=== PATIENT | female | born 1950 | race Asian ===

== ENCOUNTER 2016-09-16 14:29 | Emergency (ER) | payer OTHER ==
[~2016-09-16] VITALS: Ht 149.9 cm; Wt 53.6 kg
[2016-09-16 14:34] VITALS: BP 171/99; PULSE 80; RESP 15; O2SAT 98
--- NOTE | 2016-09-16 15:08 | ED.REPORT ---
HPI-General Illness Date of Service Sep 16, 2016 ED Provider: Teressa Miller MD Patient is a 65-year-old female who presents to the ED reporting vomiting, with three episodes in the last 24 hours. The patient had a mild cough 7 days ago and was seen at [facility] where they gave her azithromycin. Via the patient's daughter, she began vomiting early this morning and would have an episode of incontinence every time she coughed. Patient c/o associated dizziness , constipation, chills, headache, nausea, and abdominal pain that radiates to her back. She says it feels like, "the room is spinning" and describes the headache as moderate pain that began yesterday and increased in severity today. She has never had any surgery on her belly. Denies trouble breathing and diarrhea. She has been constipated and last had a bowel movement five days ago. She has never had any surgery on her belly. Patient has had one stroke in the past and has mild weakness from the event. Nursing Notes Stated Complaint: VOMITING/HIGH BP Chief Complaint: Female Abdominal Pain Nursing Notes Reviewed: Yes Allergies: Coded Allergies: No Known Allergies (Unverified , 09/16/16) Scheduled PRN Ondansetron ODT (Ondansetron ODT) 8 Mg Tab.rapdis 8 MG PO Q6H PRN PRN For Nausea General Time Seen by MD: 15:05 Chief Complaint Vomiting Hx Obtained From: Patient, Daughter Arrived By: Walk-in Sudden in Onset?: Yes Onset Occurred: 13 - 16 hours ago Symptom Duration: Since onset Location: : Abdomen Radiation: : Back Severity: Current: Mild Recent Healthcare: Recent doctor visit ([facility]) Similar Sx Previous: Yes Past Medical History Past Medical History Reports: Stroke Past Surgical History denies Social History Other Social History: Good social support, Local resident Ambulatory Status Independent Review of Systems Full Review of Systems Constitutional: Reports: Chills Respiratory: Reports: Non-productive cough GI: Reports: Abdominal pain, Constipation, Nausea, Vomiting, Denies: Diarrhea Female: Reports: Incontinence Neurologic: Reports: Dizziness, Headache, Lightheaded Complete sys rev & neg: except as marked. Physical Exam Vital Signs Vital Signs Date Time Temp Pulse Resp B/P Pulse Ox O2 Delivery O2 Flow Rate FiO2 09/16/16 20:11 37.0 81 23 118/87 95 09/16/16 18:27 80 18 120/81 09/16/16 15:55 77 18 139/83 98 Room Air 09/16/16 14:34 36.3 80 15 171/99 98 Room Air Initial VS: Reviewed, Vital signs abnormal Head / Eyes: Atraumatic, Normocephalic, PERRL ENT: Mucous membranes moist, Conjunctiva normal, No scleral icterus Neck: Supple, Non-tender, Full range of motion Respiratory: Breath sounds normal, Clear to auscultation, No respiratory distress Cardiovascular: Regular rate & rhythm, Heart sounds normal, Intact distal pulses Back: No CVA tenderness Skin: Warm, Dry, No cyanosis General/Constitutional: Awake, Alert, Cooperative, Not toxic appearing Abdomen: Atraumatic, No guarding, No rebound general tenderness Lower Extremity / Pelvis / MS: No edema Neurologic: CN II - XII intact Right arm strength 0/5 Right leg strength 4/5 sensation intact throughout Interpretation & Diagnostics Lab Results Interpretation Result Diagram: 09/16/16 1635 09/16/16 1635 Test 09/16/16 16:35 09/16/16 19:04 White Blood Count 10.5th/mm3 (3.8-10.1) Red Blood Count 6.91mil/mm3 (3.90-5.20) Hemoglobin 14.4g/dL (12.0-15.6) Hematocrit 46.1% (35.0-46.0) Mean Corpuscular Volume 66.7fL (81-100) Mean Corpuscular Hemoglobin 20.8pg (27.0-35.0) Mean Corpuscular Hemoglobin Concent 31.2% (32.0-37.0) Red Cell Distribution Width 16.3% (12.3-15.4) Platelet Count 448bil/L (150-400) Neutrophils (%) (Auto) 76.3% (40-74) Lymphocytes (%) (Auto) 19.4% (14-46) Monocytes (%) (Auto) 3.1% (4-12) Eosinophils (%) (Auto) 0.4% (0-5) Basophils (%) (Auto) 0.6% (0-3) Sodium Level 140mEq/L (134-144) Potassium Level 3.9mEq/L (3.5-5.2) Chloride Level 100mEq/L (97-108) Carbon Dioxide Level 24mmol/L (18-29) Blood Urea Nitrogen 12mg/dL (8-27) Creatinine 0.56mg/dL (0.57-1.00) Estimat Glomerular Filtration Rate 157mL/min (>59) Glucose Level 124mg/dL (60-99) Calcium Level 9.9mg/dL (8.5-10.1) Magnesium Level 2.6mg/dL (1.6-2.6) Total Bilirubin 0.6mg/dL (0.0-1.2) Aspartate Amino Transf (AST/SGOT) 48U/L (0-50) Alanine Aminotransferase (ALT/SGPT) 78U/L (0-32) Alkaline Phosphatase 111U/L (25-165) Total Protein 9.0g/dL (6.4-8.4) Albumin 4.7g/dL (3.4-5.0) Lipase 58U/L (13-60) Urine Color Yellow (YELLOW) Urine Appearance Clear (CLEAR,HAZY) Urine pH 7.0 (5.0-8.0) Urine Specific [place] 1.020 (1.003-1.035) Urine Protein Tracemg/dL (NEG,TRACE) Urine Glucose (UA) Negativemg/dL (NEGATIVE) Urine Ketones 40mg/dL (NEGATIVE) Urine Occult Blood Negative (NEGATIVE) Urine Nitrite Negative (NEGATIVE) Urine Bilirubin Negative (NEGATIVE) Urine Urobilinogen Normalmg/dL (NORMAL) Urine Leukocyte Esterase Small (NEGATIVE) Urine RBC 0-2/hpf (0-2) Urine WBC 0-5/hpf (0-5) Urine Epithelial Cells None/hpf (NONE-MOD) Urine Crystals None seen (NONE SEEN) Urine Bacteria Few/hpf (NONE-FEW) Urine Hyaline Casts None/lpf (NONE) Urine Granular Casts None seen (NONE SEEN) Urine Waxy Casts None seen (NONE SEEN) Urine Red Blood Cell Casts None seen (NONE SEEN) Urine White Blood Cell Casts None seen (NONE SEEN) Urine Mucus None seen (None Seen) Urine Trichomonas None seen (NONE SEEN) Urine Yeast None (NONE SEEN) Urinalysis Comment None Urine Culture Reflexed Indicated ECG Interpretation Time: 15:48 Interpreted by: ED physician Normal ECG Interpretation: Normal ECG w/ rate of... (76), Normal rate, Normal sinus rhythm, No acute ischemic changes X-Ray Abdominal Interpretation IMPRESSION: No evidence for bowel obstruction. Dictated by: Phil Mendoza M.D. on 09/16/2016 at 17:13 Approved by: Phil Mendoza M.D. on 09/16/2016 at 17:14 Study: 2 view Interpretation / Wet Read by: Interpret - Radiologist Re-Eval/Medical Decision Med Decision/Clinical Course The patient presents predominantly with nausea vomiting and dizziness. She was sent here from urgent care due to her high blood pressure. Differential diagnoses considered were intracranial hemorrhage, peripheral vertigo, dysrhythmia, dehydration, viral syndrome, hypertensive emergency, gastroenteritis, obstruction, and dehydration. The patient here did not reveal an obvious source of symptoms. Patient had generalized pain on her abdominal exam. After symptomatic treatment with fluids and anti-emetics the patient was feeling much improved. The patient's blood pressure came down on its own. There is likely a component of discomfort and anxiety. Time of Eval: 19:29 Patient Status: Condition unchanged Re-Evaluation/Progress Note: Pt rechecked. Informed pt of diagnosis of vomiting and dehydration and plan for treatment. Pt understands and agrees with plan. F/U and RTER warnings given. All questions addressed. Counseled Regarding: Diagnosis, Lab results, Need for follow-up, When/why to return to ED Discharge & Departure Primary Impression: Vomiting Vomiting type: unspecified Vomiting Intractability: unspecified Nausea presence: unspecified Qualified Code: R11.10 - Vomiting, unspecified Additional Impression: Dehydration Disposition: Home Discharge Condition All VS Reviewed: Yes Condition: Stable Additional Instructions: Thank you for coming to the Emergency Department today! Your diagnosis is vomiting and dehydration. Your symptoms are likely related to an infectious cause. Get plenty of rest and drink a lot of fluids. Seek care if you are unable to keep fluids down. Your prescription has been sent to [place]. Return to the Emergency Department for any new or worsening symptoms. We hope you feel better soon! Referrals: Tammy Lagunas MD (PCP) Scribe Attestation Portion of this note were transcribed by Karolyn Hoover. I, Dr. Miller, personally performed the history, physical exam, and medical decision-making: I reviewed and confirmed the accuracy for the information in the transcribed note. Signed by: rome Pool, 09/16/161999 copies to: Tammy Lagunas MD, Jena M MD Sep 16, 2016 15:08 KAROLYN HOOVER Sep 16, 2016 15:32
[2016-09-16] MEDS ORDERED: Ondansetron 2 mg/mL 2 mL Inj IVPUSH PRN (15:25)
[2016-09-16] MEDS ORDERED: 0.9% Sodium Chloride 1,000 ML IV ONE ×2 (15:25→18:30)
[2016-09-16 15:55] VITALS: BP 139/83; PULSE 77; RESP 18; O2SAT 98
[2016-09-16 16:57] LABS: Mean Corpuscular Hemoglobin 20.8 pg (27.0-35.0); Platelet Count 448 bil/L (150-400)
[2016-09-16 16:59] LABS: BASOPHILS % (AUTO) 0.6 % (0-3); EOSINOPHILS % (AUTO) 0.4 % (0-5); MONOCYTES % (AUTO) 3.1 % (4-12); Mean Corpuscular Volume 66.7 fL (81-100); NEUTROPHILS % (AUTO) 76.3 % (40-74)
[2016-09-16 17:14] LABS: Magnesium 2.6 mg/dL (1.6-2.6)
--- NOTE | 2016-09-16 17:20 | DRSVH ---
PROCEDURE: X-RAY ACUTE ABDOMINAL SERIES ([id number]) INDICATIONS: 65 year-old female with vomiting and constipation. TECHNIQUE: One view chest and two views of the abdomen were acquired. COMPARISON: None. FINDINGS: Surgical changes and devices: None. Chest: Lungs are clear. Heart size is normal. No pleural effusions. No pneumoperitoneum. Abdomen: Bowel gas pattern is normal, with scattered stool throughout the colon. No suspicious calc ifications. Visualized solid organ contours appear normal. Bones: No suspicious bony lesions. IMPRESSION: No evidence for bowel obstruction. Dictated by: Phil Mendoza M.D. on 09/16/2016 at 17:13 Approved by: Phil Mendoza M.D. on 09/16/2016 at 17:14
[2016-09-16 18:27] VITALS: BP 120/81; PULSE 80; RESP 18
[2016-09-16] MEDS ORDERED: ONDA8TAB10 PO (19:25)
[2016-09-16 19:26] LABS: APPEARANCE,URINE CLEAR (CLEAR,HAZY); COLOR,URINE YELLOW (YELLOW)
[2016-09-16 19:27] LABS: OCCULT BLOOD,URINE NEGATIVE (NEGATIVE); UROBILINOGEN,URINE NORMAL (NORMAL)
[2016-09-16 20:11] VITALS: BP 118/87; PULSE 81; RESP 23; O2SAT 95
== END 2016-09-16 20:08 | disposition home or self-care (01) ==
LOC: SED 14:29
DX: E86.0 Dehydration (principal); R42 Dizziness and giddiness; R68.83 Chills (without fever); K59.00 Constipation, unspecified; R51 Headache; R10.9 Unspecified abdominal pain; Z86.73 Personal history of transient ischemic attack (TIA), and cerebral infarction without residual deficits
CPT/HCPCS: 36415; 74022; 80053; 81000; 83690; 83735; 85025; 87086; 93005; 96360; 96361; 99285; G0463; J7030